=== PATIENT | male | born 1955 | race Caucasian/White ===

== ENCOUNTER → 2016-11-12 | Outpatient (CLI) | payer OTHER ==
[~2016-11-12] MED LIST: AMLO10TA2 PO; ATOR10TA9 PO; CETI10CA PO; CHOL100011 PO; FEBU80TA2 PO; LORA2TAB PO; MONT10TA6 PO; OMEG1CAP12 PO; OXYC10TA6 PO; PANT40TA5 PO; TADA5TAB2 PO; TIOT18CA INH; [UNRECOGNIZED DRUG - OTHER] PO
== END | disposition home or self-care (01) ==
LOC: RAD 07:58
PROVIDERS: ATTEND Family Medicine
DX: J13 Pneumonia due to Streptococcus pneumoniae (principal); R06.02 Shortness of breath
CPT/HCPCS: 71020

== ENCOUNTER → 2016-11-13 | Outpatient (CLI) | payer OTHER ==
[~2016-11-13] MED LIST changes: +OMNIPAQUE 350 MG/ML, 75ML BOTTLE ONE
== END | disposition home or self-care (01) ==
LOC: RAD 10:04
PROVIDERS: ATTEND Physician Assistant Medical
DX: J18.9 Pneumonia, unspecified organism (principal); J98.11 Atelectasis; I70.0 Atherosclerosis of aorta
CPT/HCPCS: 36415; 71260; 82565; Q9967

== ENCOUNTER → 2016-11-25 | Outpatient (CLI) | payer OTHER ==
[~2016-11-25] MED LIST changes: -OMNIPAQUE 350 MG/ML, 75ML BOTTLE ONE
== END | disposition home or self-care (01) ==
LOC: PETCFH 09:09
PROVIDERS: ATTEND Internal Medicine Hematology & Oncology
DX: C92.10 Chronic myeloid leukemia, BCR/ABL-positive, not having achieved remission (principal)
CPT/HCPCS: 78815; A9552

== ENCOUNTER 2018-01-23 10:28 | Emergency (ER) | payer OTHER ==
[~2018-01-23] VITALS: Ht 172.7 cm; Wt 69.0 kg
[~2018-01-23 10:28] MED LIST changes: -OMEG1CAP12 PO; +OMEG1CAP23 PO
[2018-01-23 10:33] VITALS: BP 155/86
[2018-01-23] MEDS ORDERED: KETOROLAC 30 MG/1 ML ONE (11:25)
[2018-01-23] MEDS ORDERED: KETOROLAC 30 MG/1 ML IM ONE (11:30)
[2018-01-23 11:35] LABS: BASOPHILS % (AUTO) 0 % (0-1); EOSINOPHILS # (AUTO) 0.34 x10^3/uL (0-0.4); EOSINOPHILS % (AUTO) 3 % (1-7); HCT (SEDRATE) 41.6 % (39.2-51.8); LYMPHOCYTES # (AUTO) 1.68 x10^3/uL (1-3.4); LYMPHOCYTES % (AUTO) 17 % (22-44); MD NO; MEAN CORPUSCULAR HEMOGLOBIN 21.3 pg (27.5-34.5); MEAN CORPUSCULAR HGB CONC 31.8 g/dL (33.2-36.2); MEAN CORPUSCULAR VOLUME 66.8 fL (81-97); MEAN PLATELET VOLUME 8.8 fL (7.4-10.4); MONOCYTES # (AUTO) 0.64 x10^3/uL (0.2-0.8); MONOCYTES % (AUTO) 6 % (2-9); NEUTROPHILS # (AUTO) 7.54 x10^3/uL (1.8-6.8); NEUTROPHILS % (AUTO) 74 % (42-75); PLATELET COUNT 200 x10^3/uL (130-400); RED BLOOD COUNT 6.23 x10^6/uL (4.38-5.82); RED CELL DISTRIBUTION WIDTH 16.9 % (9.4-14.8)
[2018-01-23 11:43] LABS: ALBUMIN 3.5 g/dL (3.4-5.0); ANION GAP 5 mmol/L (5-15); CALCIUM 8.4 mg/dL (8.5-10.1); CHLORIDE 106 mmol/L (98-107); CREATININE 1.29 mg/dL (0.7-1.3)
[2018-01-23 11:52] LABS: MICROSCOPIC NOT IND
[2018-01-23 11:53] LABS: CULTURE INDICATED? NO
== END 2018-01-23 13:25 | disposition home or self-care (01) ==
LOC: ED 11:50
DX: M25.552 Pain in left hip (principal); M87.052 Idiopathic aseptic necrosis of left femur; E11.9 Type 2 diabetes mellitus without complications; F17.200 Nicotine dependence, unspecified, uncomplicated
CPT/HCPCS: 36415; 72220; 73502; 80048; 81003; 82040; 85025; 85651; 96372; 99285; J1885

== ENCOUNTER 2018-02-01 22:49 | Emergency (ER) | payer OTHER ==
[~2018-02-01] VITALS: Ht 172.7 cm; Wt 73.0 kg
[2018-02-01] MEDS ORDERED: FLUTICASONE NAS (23:44)
[2018-02-01] MEDS ORDERED: CLON0.1T PO (23:44)
[2018-02-01] MEDS ORDERED: HYDR25TA6 PO (23:44)
[2018-02-01] MEDS ORDERED: CLON0.5T20 PO (23:44)
[2018-02-01] MEDS ORDERED: ONDA4TAB10 PO (23:44)
[2018-02-01] MEDS ORDERED: NILO150C PO (23:44)
[2018-02-01] MEDS ORDERED: IBUP-1222 PO (23:44)
[2018-02-01] MEDS ORDERED: ALBU8.5H8 INH (23:44)
[2018-02-02] MEDS ORDERED: OXYcodone IR 5MG TABLET PO PRN
[2018-02-02] MEDS ORDERED: HYDROmorphone 1 MG/ML, 1ML IM ONE
[2018-02-02 00:09] LABS: BASOPHILS # (AUTO) 0.05 x10^3/uL (0-0.1); BASOPHILS % (AUTO) 0 % (0-1); EOSINOPHILS # (AUTO) 0.33 x10^3/uL (0-0.4); EOSINOPHILS % (AUTO) 3 % (1-7); HCT (SEDRATE) 44.1 % (39.2-51.8); LYMPHOCYTES # (AUTO) 1.75 x10^3/uL (1-3.4); LYMPHOCYTES % (AUTO) 13 % (22-44); MD NO; MEAN CORPUSCULAR HEMOGLOBIN 21.1 pg (27.5-34.5); MEAN CORPUSCULAR HGB CONC 31.8 g/dL (33.2-36.2); MEAN CORPUSCULAR VOLUME 66.4 fL (81-97); MEAN PLATELET VOLUME 8.7 fL (7.4-10.4); MONOCYTES # (AUTO) 0.69 x10^3/uL (0.2-0.8); MONOCYTES % (AUTO) 5 % (2-9); NEUTROPHILS # (AUTO) 10.22 x10^3/uL (1.8-6.8); NEUTROPHILS % (AUTO) 78 % (42-75); PLATELET COUNT 224 x10^3/uL (130-400); RED BLOOD COUNT 6.65 x10^6/uL (4.38-5.82); RED CELL DISTRIBUTION WIDTH 17.3 % (9.4-14.8)
[2018-02-02] MEDS ORDERED: HYDROmorphone 2 MG/ML, 1ML ONE (00:09)
[2018-02-02] MEDS ORDERED: DIAZEPAM 5 MG TABLET ONE (01:03)
[2018-02-02] MEDS ORDERED: DIAZEPAM 5 MG/ML, 10ML VIAL IM ONE (01:30)
[2018-02-02] MEDS ORDERED: DIAZEPAM 5 MG TABLET PO ONE (01:30)
[2018-02-02 02:29] VITALS: BP 165/78
== END 2018-02-02 02:31 | disposition home or self-care (01) ==
LOC: ED 23:59
DX: G89.29 Other chronic pain (principal); M25.552 Pain in left hip; E11.9 Type 2 diabetes mellitus without complications; C92.10 Chronic myeloid leukemia, BCR/ABL-positive, not having achieved remission
CPT/HCPCS: 36415; 72192; 85025; 85651; 96372; 99285; J1170; J3360

== ENCOUNTER → 2018-03-01 | Outpatient (CLI) | payer OTHER ==
[~2018-03-01] MED LIST changes: +ALBU8.5H8 INH; +CLON0.1T PO; +CLON0.5T20 PO; +FENTANYL PF 100 MCG/2ML ONE; +FLUMAZENIL 0.1 MG/1 ML, 5ML ONE; +FLUTICASONE NAS; +HYDR25TA6 PO; +IBUP-1222 PO; +MIDAZOLAM 1 MG/ML, 5ML ONE; +NALOXONE 1 MG/ML, 2ML ONE; +NILO150C PO; +ONDA4TAB10 PO
== END | disposition home or self-care (01) ==
LOC: RAD 13:48
PROVIDERS: ATTEND Psychiatry & Neurology Neurology
DX: G20 Parkinson's disease (principal)
CPT/HCPCS: 70551; 99156; 99157; J2250; J3010; J2310

== ENCOUNTER 2018-07-22 06:51 | Day surgery (SDC) | payer OTHER ==
[~2018-07-22] VITALS: Ht 172.7 cm; Wt 73.0 kg
[~2018-07-22 06:51] MED LIST changes: -AMLO10TA2 PO; +AMLO10TA6 PO; -CLON0.1T PO; +CLON0.1T22 PO; -FENTANYL PF 100 MCG/2ML ONE; -FLUMAZENIL 0.1 MG/1 ML, 5ML ONE; -MIDAZOLAM 1 MG/ML, 5ML ONE; -NALOXONE 1 MG/ML, 2ML ONE
[2018-07-22] MEDS ORDERED: LACTATED RINGERS 1,000 ML IV SCH ×2 (07:12→07:34)
[2018-07-22 07:47] LABS: ALANINE AMINOTRANSFERASE 18 U/L (12-78); ALBUMIN 4.2 g/dL (3.4-5.0); ANION GAP 6 mmol/L (5-15); CALCIUM 9.4 mg/dL (8.5-10.1); CHLORIDE 104 mmol/L (98-107); CREATININE 1.35 mg/dL (0.7-1.3)
[2018-07-22 07:50] LABS: ALKALINE PHOSPHATASE 105 U/L (45-117); BILIRUBIN,TOTAL 0.5 mg/dL (0.2-1.0); TOTAL PROTEIN 7.7 g/dL (6.4-8.2)
[2018-07-22] MEDS ORDERED: PROMETHAZINE 12.5 MG SUPP PR PRN (10:00)
[2018-07-22] MEDS ORDERED: MIDAZOLAM 1 MG/ML, 2ML IV PRN (10:00)
[2018-07-22] MEDS ORDERED: DIPHENHYDRAMINE 50 MG/ML, 1ML IVPush PRN (10:00)
[2018-07-22] MEDS ORDERED: EPHEDRINE 50 MG/ML, 1ML IM PRN (10:00)
[2018-07-22] MEDS ORDERED: FENTANYL PF 100 MCG/2ML IV PRN (10:00)
[2018-07-22] MEDS ORDERED: ONDANSETRON ODT 8 MG PO PRN (10:00)
[2018-07-22] MEDS ORDERED: ACETAMINOPHEN 325 MG TABLET PO PRN (10:00)
[2018-07-22] MEDS ORDERED: METOPROLOL 1 MG/ML, 5ML IV PRN (10:00)
[2018-07-22] MEDS ORDERED: PROMETHAZINE 25 MG SUPP PR PRN (10:00)
[2018-07-22] MEDS ORDERED: hydrALAzine 20 MG/ML, 1ML IV PRN (10:00)
[2018-07-22] MEDS ORDERED: PROMETHAZINE 25 MG/ML, 1ML IV PRN (10:00)
[2018-07-22] MEDS ORDERED: EPHEDRINE 50 MG/ML, 1ML IVPush PRN (10:00)
[2018-07-22] MEDS ORDERED: ONDANSETRON 2MG/ML, 2ML ONE (10:49)
[2018-07-22] MEDS ORDERED: PROPOFOL 10 MG/ML, 20ML ONE (10:49)
== END 2018-07-22 11:05 | disposition home or self-care (01) ==
LOC: OUT 06:51
PROVIDERS: ATTEND Pain Medicine Interventional Pain Medicine
DX: M54.5 Low back pain (principal); G89.29 Other chronic pain; M25.552 Pain in left hip; M51.37 Other intervertebral disc degeneration, lumbosacral region; C92.10 Chronic myeloid leukemia, BCR/ABL-positive, not having achieved remission; F17.210 Nicotine dependence, cigarettes, uncomplicated; F41.9 Anxiety disorder, unspecified; Z79.899 Other long term (current) drug therapy; Z88.8 Allergy status to other drugs, medicaments and biological substances
CPT/HCPCS: 36415; 72148; 73721; 80053; 82962; 93005; J2405; J2704; J7120